=== PATIENT | male | born 1955 | race Caucasian/White ===

== ENCOUNTER 2016-09-12 19:54 | Emergency (ER) | payer BC, OTHER ==
[~2016-09-12] VITALS: Ht 167.6 cm; Wt 121.1 kg
[~2016-09-12 19:54] MED LIST: SITA25TA3
--- NOTE | 2016-09-12 20:08 | NUR ---
Placed in room 07 . Placed on environmental monitoring technician, blood pressure machine and pulse oximeter. To gown for exam. Side rails up. Report given to AMRIT Vieyra.
[2016-09-12 20:14] VITALS: BP_SYST 127
--- NOTE | 2016-09-12 20:15 | NUR ---
Pt AOx4, ambulatory, presents to ED with complaint of abscess to left buttock. Pain 5/10 to site. Pt states "it's more discomfort than pain". No acute distress noted. Will continue to monitor.
[2016-09-12] MEDS ORDERED: NACL 0.9% 1,000 ML IV ONE (20:16)
[2016-09-12] MEDS ORDERED: LIDOCAINE 1% 10 MG/ML, 20 ML MDV IJ ONE (20:30)
[2016-09-12 21:00] LABS: BASOPHILS # (AUTO) 0.1 K/uL (0.0-0.2); BASOPHILS % (AUTO) 0.5 % (0.0-2.0); EOSINOPHILS # (AUTO) 0.3 K/uL (0.0-0.4); EOSINOPHILS % (AUTO) 2.1 % (0.0-4.0); HEMATOCRIT 40.4 % (36-54); HEMOGLOBIN 13.3 g/dL (14.0-18.0); LYMPHOCYTES # (AUTO) 1.4 K/uL (1.0-5.5); LYMPHOCYTES % (AUTO) 10.2 % (20.5-51.5); MEAN CORPUSCULAR HEMOGLOBIN 28 pg (27-31); MEAN CORPUSCULAR HGB CONC 33 % (32-36); MEAN CORPUSCULAR VOLUME 85 fL (79.0-98.0); MONOCYTES # (AUTO) 1.2 K/uL (0.0-1.0); MONOCYTES % (AUTO) 8.7 % (1.7-9.3); NEUTROPHILS # (AUTO) 10.7 K/uL (1.8-7.7); NEUTROPHILS % (AUTO) 78.5 % (40.0-70.0); PLATELET COUNT (AUTO) 349 K/uL (130-430); RED BLOOD CELL COUNT(AUTO) 4.74 MIL/uL (4.2-6.2); RED CELL DISTRIBUTION WIDTH 13.2 % (9.0-15.0); WHITE BLOOD COUNT (AUTO) 13.7 K/uL (4.8-10.8)
[2016-09-12] MEDS ORDERED: INSU100V9 SUBCUT (21:05)
[2016-09-12] MEDS ORDERED: Losartan PO (21:07)
[2016-09-12 21:11] LABS: ANION GAP 8 (5-15); CALCIUM 8.2 mg/dL (8.4-11.0); CHLORIDE 99 mmol/L (98-107); CREATININE 1.31 mg/dL (0.55-1.30); POTASSIUM 3.7 mmol/L (3.5-5.1); SODIUM SERUM 134 mmol/L (136-145); UREA NITROGEN, BLOOD 21 mg/dL (8-21)
[2016-09-12] MEDS ORDERED: CLINDAMYCIN 900 mg/50mL D5W 50 ML IV ONE (21:15)
[2016-09-12 21:16] LABS: ALANINE AMINOTRANSFERASE 28 U/L (12-78); ALBUMIN 3.4 g/dL (3.4-4.8); ASPARTATE AMINOTRANSFERASE 17 U/L (10-37); TOTAL BILIRUBIN 0.5 mg/dL (0.0-1.0); TOTAL PROTEIN, SERUM 7.3 g/dL (6.4-8.3)
[2016-09-12 21:21] LABS: GFR AFRICAN AMERICAN 72 mL/min (>90)
[2016-09-12 21:22] LABS: GLUCOSE 420 mg/dL (70-99)
--- NOTE | 2016-09-12 21:22 | NUR ---
Spoke with Laboratory, critical value of blood glucose 420 reported. ED MD Matthews made aware.
[2016-09-12 21:26] LABS: ACETONE, SERUM NEGATIVE (NEGATIVE)
[2016-09-12] MEDS ORDERED: INSULIN REGULAR, HUMAN 10 UNITS/0.1 ML INJ IVP ONE (21:45)
--- NOTE | 2016-09-12 21:48 | NUR ---
No adverse reactions noted after medication administration. Will continue to monitor.
[2016-09-12] MEDS ORDERED: INSULIN REGULAR, HUMAN 10 UNITS/0.1 ML INJ SUBCUT ONE (22:00)
[2016-09-12 22:37] VITALS: BP_SYST 127
--- NOTE | 2016-09-12 22:37 | NUR ---
Patient given written and verbal discharge instructions and verbalizes ER MD discussed with patient the results and treatment provided. Patient in stable condition. ID arm band removed. IV catheter removed intact and dressing applied, no active bleeding. Rx of Motrin 800 mg, Keflex 500 mg and Bactrim DS given. Patient educated on pain management and to follow up with PMD. Pain Scale 0/10. Opportunity for questions provided and answered.
== END 2016-09-12 22:37 | disposition home or self-care (01) ==
LOC: SED 19:54
DX: L02.31 Cutaneous abscess of buttock (principal); E11.65 Type 2 diabetes mellitus with hyperglycemia; I10 Essential (primary) hypertension; Z88.6 Allergy status to analgesic agent
CPT/HCPCS: 10060; 36415; 80053; 82009; 82962; 85025; 96361; 96365; 96372; 99284; J1815; J2001; J3490; J7030

== ENCOUNTER 2016-09-14 21:44 | Emergency (ER) | payer OTHER ==
[~2016-09-14] VITALS: Ht 167.6 cm; Wt 121.1 kg
[~2016-09-14 21:44] MED LIST changes: +INSU100V9 SUBCUT; +Losartan PO
[2016-09-14 21:59] VITALS: BP_SYST 139
[2016-09-15 00:40] VITALS: BP_SYST 130
== END 2016-09-15 00:40 | disposition home or self-care (01) ==
LOC: SED 21:44
DX: Z48.00 Encounter for change or removal of nonsurgical wound dressing (principal); E11.9 Type 2 diabetes mellitus without complications; I10 Essential (primary) hypertension; Z88.8 Allergy status to other drugs, medicaments and biological substances; Z79.899 Other long term (current) drug therapy
CPT/HCPCS: 99283